=== PATIENT | female | born 1980 | race Caucasian/White ===

== ENCOUNTER 2018-12-16 11:26 | Emergency (ER) | payer OTHER ==
[2018-12-16 11:38] VITALS: BP 138/94
--- NOTE | 2018-12-16 11:47 | ER Document Report ---
ED Medical Screen (RME) - General Chief Complaint: Leg Pain Stated Complaint: LEG SWELLING Time Seen by Provider: 12/16/18 11:42 Primary Care Provider: MARY HAN PA [Primary Care Provider] - Follow up as needed Mode of Arrival: Ambulatory Information source: Patient Notes: 38-year-old female presented to ED for large painful bruise to the left upper thigh. She states she was recently diagnosed with a small superficial blood clot in the left leg they started on knee-high pression hose and then progressed her to thigh-high compression hose. She states this area developed after the thigh-high. She also has another bruise higher up on her hip. She states she does not know what that is caused from either. She states she has not fallen has not injured herself. She states she is a former smoker does not drink does not drug lives with her family did have a recent drive to [place]. Dictation of this chart was performed using voice recognition software; therefore, there may be some unintended grammatical errors. I have greeted and performed a rapid initial assessment of this patient. A comprehensive ED assessment and evaluation of the patient, analysis of test results and completion of medical decision making process will be conducted by an additional ED providers. TRAVEL OUTSIDE OF THE [place] IN LAST 30 DAYS: No - Related Data Allergies/Adverse Reactions: povidone-iodine [From Betadine] Allergy (Severe, Verified 10/22/15 07:50) patel skin butorphanol tartrate [From Stadol] Allergy (Intermediate, Verified 10/22/15 07:50) Hallucinations doxycycline [Doxycycline] Allergy (Mild, Verified 10/22/15 07:50) Hives Soap [From Betadine] Allergy (Verified 10/18/15 14:13) Past Medical History - Social History Frequency of alcohol use: None Drug Abuse: None - Past Medical History Cardiac Medical History: Denies: Hx Coronary Artery Disease, Hx Heart Attack, Hx Hypertension Pulmonary Medical History: Denies: Hx Asthma, Hx Bronchitis, Hx COPD Neurological Medical History: Denies: Hx Cerebrovascular Accident, Hx Seizures Endocrine Medical History: Reports: Hx Diabetes Mellitus Type 1 Renal/ Medical History: Reports: Hx Kidney Stones. Denies: Hx Peritoneal Dialysis Musculoskeltal Medical History: Reports Hx Arthritis Past Surgical History: Reports: Hx Abdominal Surgery - X7, Hx Section, Hx Hysterectomy, Hx Tubal Ligation - WITH REVERSAL - Immunizations Hx Diphtheria, Pertussis, Tetanus Vaccination: Yes Physical Exam - Vital signs Vitals: Temp Pulse Resp BP Pulse Ox 97.9 F 85 18 138/94 H 97 12/16/18 11:37 12/16/18 11:37 12/16/18 11:37 12/16/18 11:37 12/16/18 11:37 Course - Vital Signs Vital signs: Temp Pulse Resp BP Pulse Ox 97.9 F 85 18 138/94 H 97 12/16/18 11:37 12/16/18 11:37 12/16/18 11:37 12/16/18 11:37 12/16/18 11:37 Doctor's Discharge - Discharge Referrals: MARY HAN PA [Primary Care Provider] - Follow up as needed
== END 2018-12-16 12:41 | disposition left against medical advice (07) ==
LOC: ER 11:26
DX: S70.12XA Contusion of left thigh, initial encounter (principal); S70.00XA Contusion of unspecified hip, initial encounter; X58.XXXA Exposure to other specified factors, initial encounter; Z88.3 Allergy status to other anti-infective agents; Z88.5 Allergy status to narcotic agent; Z88.1 Allergy status to other antibiotic agents; Z53.20 Procedure and treatment not carried out because of patient's decision for unspecified reasons
CPT/HCPCS: 99281